=== PATIENT | male | born 1965 | race Caucasian/White ===

== ENCOUNTER 2025-02-22 07:44 | Day surgery (SDC) | payer BC ==
[2025-02-22] MEDS ORDERED: Sodium Chloride 0.9% 10 ML Syringe FLUSH PRN (08:00)
[2025-02-22] MEDS: Lactated Ringers 1,000 ML IV SCH (08:21)
[2025-02-22] MEDS ORDERED: Propofol 200 MG/20 ML SDV ONE (08:22)
[2025-02-22] MEDS ORDERED: Midazolam 1 MG/ML 2 ML SDV ONE (08:22)
== END 2025-02-22 10:30 | disposition home or self-care (01) ==
LOC: LL.SDS 07:44
PROVIDERS: ATTEND Surgery
DX: D12.6 Benign neoplasm of colon, unspecified (principal); K63.5 Polyp of colon; K64.8 Other hemorrhoids; K64.4 Residual hemorrhoidal skin tags; F17.210 Nicotine dependence, cigarettes, uncomplicated
CPT/HCPCS: J2250; J2704; J7120